=== PATIENT | male | born 1955 | race Caucasian/White ===

== ENCOUNTER 2022-02-22 08:15 | Outpatient (REF) | payer MEDICARE, SELFPAY ==
--- NOTE | ~2022-02-22 | CT_ITS ---
EXAMINATION: CT CERVICAL SPINE WITHOUT CONTRAST CLINICAL INFORMATION: Anesthesia of skin. COMPARISON: None TECHNIQUE: Multidetector helical imaging acquired in the axial plane with generation of reformatted acquisitions. This CT examination was performed using dose optimization techniques as appropriate, variously including the following: *Automated exposure control *Adjustment of mA and/or kV according to patient size (this includes techniques or standardized protocols for targeted exams where dose is matched to indication/reason for exam; i.e. extremities or head) *Use of iterative reconstruction technique DLP: 501 mGy-cm FINDINGS: There is a congenital osseous lesion anomaly at the C3-C4 level. Bulky anterolateral endplate spurring most notable at the C4-C5 and C5-C6 levels. Leftward curvature of the cervical spine evident. There is severe disc space narrowing and posterior endplate spurring at the C6-C7 level. There are no compression fractures or subluxations. The craniovertebral junction and atlantoaxial articulations are normally maintained. C2-C3: Moderate right-sided facet arthrosis contribute to moderate right foraminal encroachment. No disc pathology or central canal stenosis. C3-C4: Congenital osseous fusion anomaly without central canal stenosis or foraminal narrowing. Ankylosis of the facet joints. C4-C5: Broad-based disc-osteophyte complex mildly impressing upon the ventral thecal sac with mild central canal stenosis and severe bilateral foraminal encroachment, worse on the left side. C5-C6: Broad-based disc-osteophyte complex and moderate central canal stenosis with [id number] foraminal narrowing bilaterally. C6-C7: Bulky midline posterior endplate spurring and mild disc bulge distorting the ventral cord and thecal sac. Mild central canal stenosis. [id number] foraminal narrowing. C7-T1: Mild disc bulge without central canal stenosis and severe bilateral foraminal narrowing due to uncovertebral joint spurring. The lung apices are clear. The paraspinal soft tissues are unremarkable. Atherosclerotic wall calcifications noted at the carotid bifurcations. The imaged portions of the brain demonstrate no acute abnormality. The middle ear cavities and mastoid air cells are well aerated. CT/CT cervical spine wo IV con IMPRESSION: 1. 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 Moderate right foraminal narrowing at the C2-C3 level. 2. Mild central canal stenosis and severe bilateral foraminal narrowing at the C4-C5 level. Moderate central canal stenosis and significant foraminal narrowing at the C5-C6 level. Leftward curvature of the cervical spine. 3. Mild central canal stenosis at the C6-C7 level due to posterior endplate ossific spurring. Severe bilateral foraminal narrowing at the C7-T1 level.
== END 2022-02-22 08:16 | disposition home or self-care (01) ==
LOC: HO.CT 08:15
PROVIDERS: PCP Internal Medicine; Visit Provider Psychiatry & Neurology Neurology
DX: M47.812 Spondylosis without myelopathy or radiculopathy, cervical region (principal); R20.0 Anesthesia of skin; R20.2 Paresthesia of skin
CPT/HCPCS: 72125

== ENCOUNTER → 2022-02-28 08:41 | Outpatient (REF) | payer MEDICARE, SELFPAY | LOC: HO.SL 08:41 | PROVIDERS: PCP Internal Medicine; Visit Provider Psychiatry & Neurology Neurology | DX: R06.83 Snoring (principal); G47.10 Hypersomnia, unspecified; I49.3 Ventricular premature depolarization; I10 Essential (primary) hypertension | CPT/HCPCS: 95806 ==

== ENCOUNTER → 2022-03-20 13:50 | Outpatient (BNVA) | payer MEDICARE, SELFPAY | PROVIDERS: PCP Internal Medicine; Visit Provider Psychiatry & Neurology Neurology | DX: R25.1 Tremor, unspecified (principal); R20.0 Anesthesia of skin; R20.2 Paresthesia of skin; M47.812 Spondylosis without myelopathy or radiculopathy, cervical region; R06.83 Snoring; G47.10 Hypersomnia, unspecified | CPT/HCPCS: 99212 ==

== ENCOUNTER 2022-05-25 09:00 | Outpatient (RCR) | payer MEDICARE, SELFPAY ==
--- NOTE | 2022-04-04 13:00 | MHC.PT.EP ---
[facility] [place] Office [place] Office [place] Office [address] [phone] F: [phone] F: [phone] F: [phone] F: [phone] Physical Therapy Plan of Care Date of Evaluation: Date of Surgery: Diagnosis: Spondylosis of cervical spine Cervical radiculopathy bilateral UEs Assessment: Patient is pleasant 66 y.o male referred to PT by Hailee Hewitt MD with Dx of cervical spondylosis, (but he does present with radiculopathy). He presents with PT Dx of cervical radiculopathy with paresthesia in bilateral UEs. His current impairments include reduced cervical ROM, constant pain, weak mid and lower trapezius muscles, and reduced sensation to bilateral UEs. His functional limitations include difficulty sleeping (is sleeping in recliner), prolonged sitting or standing, writing, and reading. Skilled PT will address impairments and functional limitations in order to achieve goals and help patient to better manage pain. Frequency and Duration: The patient will be seen 2x/week for 4 weeks Short Term Goals: 2 weeks Patient is independent and consistent with HEP to self manage symptoms and reduce chronic pain 3/10. Patient presents with improved neck and shoulder girdle posture in neutral. [employer] Goals: 4 weeks Patient presents with increased L cervical spine rotation 50 degrees to improve looking over shoulder to drive. Patient is able to centralize UE symptoms to neck with traction treatment. Treatment Plan: Modalities to reduce pain, spasms and effusion. Manual therapy to restore motion and function. Therapeutic exercise to improve strength and flexibility. Neuromuscular re-education for posture and balance. Therapeutic activities to return to functional activities of daily living. Electronically signed by: Suraj Srivastava, PT, DPT Please sign and return to therapist. Thank you for your referral.
== END 2022-07-06 14:34 | disposition home or self-care (01) ==
LOC: HO.PTCHIC 09:00
PROVIDERS: PCP Internal Medicine; Visit Provider Psychiatry & Neurology Neurology
DX: R20.0 Anesthesia of skin (principal); R20.2 Paresthesia of skin; M47.812 Spondylosis without myelopathy or radiculopathy, cervical region
CPT/HCPCS: 97012; 97110; 97140; 97162

== ENCOUNTER → 2022-06-21 11:24 | Outpatient (BNVA) | payer MEDICARE, SELFPAY | PROVIDERS: PCP Internal Medicine; Visit Provider Psychiatry & Neurology Neurology | DX: R25.1 Tremor, unspecified (principal); R20.0 Anesthesia of skin; R20.2 Paresthesia of skin; M47.812 Spondylosis without myelopathy or radiculopathy, cervical region; G47.33 Obstructive sleep apnea (adult) (pediatric) | CPT/HCPCS: 99212 ==

== ENCOUNTER 2022-12-20 10:28 | Outpatient (AMB) | payer MEDICARE, SELFPAY ==
--- NOTE | 2022-12-20 10:29 | A.OFFVIS_ITS ---
Intake Vital Signs 12/20/22 10:37 Weight 233 lb 6 oz BP 140/80 H Blood Pressure Location Lt brachial Position Sitting Pulse 86 Pulse Source Pulse Oximeter Pulse Oximetry (%) 97 Oxygen Delivery Method Room Air Intake Visit Reasons: 6m FOLLOW UP - Confirmed Intake Note: F/U [employer] Required: No Allergies Seasonal Allergies Allergy (Unverified 12/20/22 10:35) hay fever HPI HPI Comments History of Present Illness Details 67 y/o right handed male patient with MILY, left hand tremor and anxiety comes for follow up. Pt reports that his hand tremor has improved with gabapentin 300 mg. Home sleep test was c/w Moderate sleep apnea and started APAP [id number]. He can sleep 5-6 hrs with CPAP and sleep quality has improved a little. The CPAP compliance and therapy response (11/15/22-12/14/22) reviewed. The usage days 83% and the average usage hours 5 hrs 30 min. The median pressure was 6.3 and the AHI was 0.2/hr. [facility] Medical History (Updated 06/21/22 @ 11:41 by Hailee Dinero MD) Anxiety Cervical spondylosis HTN (hypertension) Hyperlipidemia Obstructive sleep apnea PVC (premature ventricular contraction) Surgical History H/O bilateral hip replacements Hx of hernia repair Family History Father Heart disease Hypertension High cholesterol Mother Heart disease Stroke Leukemia Family/Other Hypertension High cholesterol Social History (Updated 12/20/22 @ 10:37 by Nelly Solis CMA) Household Members: Significant Other Alcohol intake: current Alcohol intake frequency: a few times a week Alcohol type: wine Patient Tobacco Use Status: Never used Tobacco Review of Systems Const All systems reviewed & are unremarkable except as noted in HPI and below Physical Exam Vital Signs: Last Vital Signs Pulse 86 12/20/22 10:37 BP 140/80 H 12/20/22 10:37 Pulse Ox 97 12/20/22 10:37 Oxygen Delivery Method Room Air 12/20/22 10:37 Const General: cooperative, healthy appearing, comfortable and anxious Nutritional Appearance: overweight Orientation/consciousness: patient oriented x3 Eyes Pupils: Equal, round and reactive pupils present Neck Other: tightness, tremors Neuro Other: very mild left UE postural tremors General: patient oriented x3, tone normal and moves all extremities Cranial nerves: Yes CN's II-XII intact bilaterally, Yes Facial sensation intact/muscles of mastication intact, Yes Equal, round and reactive pupils present, Yes Bilaterally intact EOM present, Yes Nystagmus not present, Yes Normal facial strength present and Yes Midline tongue present Cognition (Neuro): normal cognition Speech: Other speech findings present (Neuro) (mild voice tremors) Gait exam (Neuro): Normal gait present Motor exam (neuro): 5/5 motor strength present throughout and Normal motor muscle tone present throughout Deep tendon reflexes (DTR's): Right triceps reflex intensity grade: 3+, Left triceps reflex intensity grade: 3+, Rt Biceps (C5, C6): 3+, Left biceps reflex intensity grade: 3+, Right brachioradialis reflex intensity grade: 3+, Left brachioradialis reflex intensity grade: 3+, Right patellar reflex intensity grade: 3+, Left patellar reflex intensity grade: 3+, Right ankle reflex intens ity grade: 3+ and Left ankle reflex intensity grade: 3+ Coordination: [id number] test normal Psych Speech and movement: Pressured speech present Assessment & Plan Assessment & Plan (1) Tremors of nervous system: Comment: exaggerated physiological tremors Code(s): R25.1 - Tremor, unspecified (2) Numbness and tingling: Comment: cervical spondylosis ? cord compression Code(s): R20.0 - Anesthesia of skin; R20.2 - Paresthesia of skin (3) Cervical spondylosis: Code(s): M47.812 - Spondylosis without myelopathy or radiculopathy, cervical region (4) Obstructive sleep apnea: Code(s): G47.33 - Obstructive sleep apnea (adult) (pediatric) Plan Advised patient to continue to take gabapentin 300mg qhs for tremor. Continue to use CPAP 5-20 cmH2O. Stressed compliance, use CPAP nightly and more than 4 hrs. Coding Level of Care Code Est Pt Level 3 (13588) Diagnoses Tremors of nervous system R25.1 Numbness and tingling R20.0; R20.2 Cervical spondylosis M47.812 Obstructive sleep apnea G47.33
[2022-12-20 10:37] VITALS: BP 140/80; PULSE 86; O2SAT 97
== END 2022-12-20 10:56 | disposition home or self-care (01) ==
PROVIDERS: Visit Provider Nurse Practitioner Family
DX: R25.1 Tremor, unspecified (principal); R20.0 Anesthesia of skin; R20.2 Paresthesia of skin; M47.812 Spondylosis without myelopathy or radiculopathy, cervical region; G47.33 Obstructive sleep apnea (adult) (pediatric)
CPT/HCPCS: 99213

== ENCOUNTER → 2022-12-20 10:28 | Outpatient (BNVA) | payer MEDICARE, SELFPAY | PROVIDERS: Visit Provider Nurse Practitioner Family | DX: G47.33 Obstructive sleep apnea (adult) (pediatric) (principal); R25.1 Tremor, unspecified; R20.0 Anesthesia of skin; R20.2 Paresthesia of skin; M47.812 Spondylosis without myelopathy or radiculopathy, cervical region | CPT/HCPCS: 99212 ==

== ENCOUNTER 2023-06-18 10:53 | Outpatient (AMB) | payer MEDICARE, SELFPAY ==
--- NOTE | 2023-06-18 10:59 | A.OFFVIS_ITS ---
Intake Vital Signs 06/18/23 11:05 Height 5 ft 11 in Weight 235 lb 4 oz BMI 32.8 BP 142/70 H Blood Pressure Location Lt brachial Position Sitting Pulse 64 Pulse Source Pulse Oximeter Pulse Oximetry (%) 98 Oxygen Delivery Method Room Air Intake Visit Reasons: 6 mo f/u LVM Intake Note: Patient presents for 6 month f/u. Allergies Seasonal Allergies Allergy (Verified 06/18/23 11:02) hay fever HPI HPI Comments History of Present Illness Details 67 y/o right handed male patient with OS A, left hand tremor comes for follow up. Pt reports he had sinus congestion, and had hard time using CPAP over the past couple of months. The sinus congestion has improved a little and started using CPAP more regularly since last week. Pt reports that his hand tremor has improved with gabapentin 300 mg. Home sleep test was c/w moderate sleep apnea and started APAP [id number]. The CPAP compliance and therapy response (02/28/23-05/28/23) reviewed. The usage days 41% and the average usage hours 4 hrs 40 min. The median pressure was 6.1 and the AHI was 0.2/hr. [facility] Medical History (Updated 06/21/22 @ 11:41 by Hailee Dinero MD) Obstructive sleep apnea Anxiety Cervical spondylosis PVC (premature ventricular contraction) Hyperlipidemia HTN (hypertension) Surgical History Hx of hernia repair H/O bilateral hip replacements Family History Father Heart disease Hypertension High cholesterol Mother Heart disease Stroke Leukemia Family/Other Hypertension High cholesterol Social History Household Members: Significant Other Alcohol intake: current Alcohol intake frequency: a few times a week Alcohol type: wine Patient Tobacco Use Status: Never used Tobacco Review of Systems Const All systems reviewed & are unremarkable except as noted in HPI and below Physical Exam Vital Signs: Last Vital Signs Pulse 64 06/18/23 11:05 BP 142/70 H 06/18/23 11:05 Pulse Ox 98 06/18/23 11:05 Oxygen Delivery Method Room Air 06/18/23 11:05 BMI result Body Mass Index 32.8 Const General: cooperative, healthy appearing, comfortable and anxious Nutritional Appearance: overweight Orientation/consciousness: patient oriented x3 Eyes Pupils: Equal, round and reactive pupils present Neck Other: tightness, tremors Neuro Other: very mild left UE postural tremors General: patient oriented x3, tone normal and moves all extremities Cranial nerves: Yes CN's II-XII intact bilaterally, Yes Facial sensation intact/muscles of mastication intact, Yes Equal, round and reactive pupils present, Yes Bilaterally intact EOM present, Yes Nystagmus not present, Yes Normal facial strength present and Yes Midline tongue present Cognition (Neuro): normal cognition Speech: Other speech findings present (Neuro) (mild voice tremors) Gait exam (Neuro): Normal gait present Motor exam (neuro): 5/5 motor strength present throughout and Normal motor muscle tone present throughout Deep tendon reflexes (DTR's): Right triceps reflex intensity grade: 3+, Left triceps reflex intensity grade: 3+, Rt Biceps (C5, C6): 3+, Left biceps reflex intensity grade: 3+, Right brachioradialis reflex intensity grade: 3+, Left brachioradialis reflex intensity grade: 3+, Right patellar reflex intensity grade: 3+, Left patellar reflex intensity grade: 3+, Right ankle reflex intensity grade: 3+ and Left ankle reflex intensity grade: 3+ Coordination: [id number] test normal Psych Speech and movement: Pressured speech present Assessment & Plan Assessment & Plan (1) Tremors of nervous system: Comment: exaggerated physiological tremors Code(s): R25.1 - Tremor, unspecified (2) Numbness and tingling: Comment: cervical spondylosis ? cord compression Code(s): R20.0 - Anesthesia of skin; R20.2 - Paresthesia of skin (3) Obstructive sleep apnea: Code(s): G47.33 - Obstructive sleep apnea (adult) (pediatric) Plan Advised patient to continue to take gabapentin 300mg qhs for tremor. Continue to use CPAP 5-20 cmH2O. Stressed compliance, use CPAP nightly and more than 4 hrs. Advised patient to try Neti Pot for nasal congestion. Wt reduction advised. Coding Level of Care Code Est Pt Level 4 (57450) Diagnoses Tremors of nervous system R25.1 Numbness and tingling R20.0; R20.2 Obstructive sleep apnea G47.33
[2023-06-18 11:05] VITALS: BP 142/70; PULSE 64; O2SAT 98; BMI 32.8
== END 2023-06-18 11:27 | disposition home or self-care (01) ==
PROVIDERS: PCP Internal Medicine; Visit Provider Nurse Practitioner Family
DX: R25.1 Tremor, unspecified (principal); R20.0 Anesthesia of skin; R20.2 Paresthesia of skin; G47.33 Obstructive sleep apnea (adult) (pediatric)
CPT/HCPCS: 99214

== ENCOUNTER → 2023-06-18 10:53 | Outpatient (BNVA) | payer MEDICARE, SELFPAY | PROVIDERS: PCP Internal Medicine; Visit Provider Nurse Practitioner Family | DX: G47.33 Obstructive sleep apnea (adult) (pediatric) (principal); R25.1 Tremor, unspecified; R20.0 Anesthesia of skin; R20.2 Paresthesia of skin; Z99.89 Dependence on other enabling machines and devices | CPT/HCPCS: 99212 ==